=== PATIENT | female | born 1965 | race Caucasian/White ===

== ENCOUNTER 2025-06-09 07:29 | Outpatient (OUT) | payer OTHER, SELFPAY ==
--- NOTE | 2025-06-09 | XR_ITS ---
The [address] [address] Patient Name: BRITT BLACK MRN: [id number] date: 1965 Sex: F Assigned Patient Location: [facility] Current Patient Location: [facility] Accession/Order Number: [id number] Exam Date: 06/09/2025 09:30 Report Date: 06/09/2025 10:32 At the request of: ÁNGELA GUARDADO MD Procedure: XR hand VIVIENNE min 3v BILATERAL HANDS - 3 views each COMPARISON: None CLINICAL DATA: Bilateral hand pain, greater on the right. No injury. AP, lateral and oblique views were obtained. There is osteopenia. No acute fractures or dislocation are identified. There is narrowing of the interphalangeal joint spaces and hypertrophy, greatest at the distal interphalangeal joint of the index fingers. On the right, there is also cystic change at the head of the middle phalanx at the index finger. Joint space narrowing and minor hypertrophy are also noted at the first carpal metacarpal joints. Additional mild joint space narrowing is seen at the radial carpal joints. No focal soft tissue swelling is noted. XR/XR hand VIVIENNE min 3v IMPRESSION: DEGENERATIVE CHANGES, GREATEST AT THE DISTAL INDEX FINGERS AND FIRST CARPAL METACARPAL JOINTS Impression dictated by: Shereen Ruiz M.D. 06/09/2025 10:32 AM Dictation Location: [place] [address] Electronically authenticated by: [id number] Y Date: 06/09/2025 10:32
--- OUTSIDE RECORDS SUMMARY | 2025-06-09 07:31 | XMS_ITS | Patient Health Record ---
Author Organization [facility] Address [address] [place] [address] Care Team Providers Care Equalizing Saw Operator Name Role Phone Héctor Fragoso [phone] Allergies Allergen (clinical drug ingredient) Drug/Non Drug Allergy documented on EMR Reaction Allergy Type Onset Date Status penicillinUnknownDrug AllergyActive Reason For Referral No Information Medications Medication SIG (Take, Route, Frequency, Duration) Notes Start Date End Date Status hydroCHLOROthiazide ActiveTamiflu 75 mg1 cap(s) orally 2 times a day; Duration: 5 day(s)Active Problems Problem Type SNOMED Code ICD Code Onset Dates Problem Status W/U Status Risk Notes Problem Gastroesophageal ref lux disease (disorder) (784144785) GERD [Gastroesophageal reflux disease] (530.81) ActiveconfirmedProblemEssential hypertension (72062966)Essential (primary) hypertension (I10)Activeconfirmed Plan Of Treatment No Information Insurance Providers Payer Name Payer Address Payer Phone Subscriber Number Group Number Insured Name Patient Relationship to Insured Coverage Start Date Coverage End Date [employer] [address] [place] [address] [id number] Andrew Lee - patient is the spouse of the [id number] 2018 [employer] Mutual[address] [place] [phone] [id number] nieves - patient is the spouse of the insured Medical (General) History Medical History History ICD Code GERD [Gastroesophageal reflux disease] 5 30.81 Essential (primary) hypertension I10
--- OUTSIDE RECORDS SUMMARY | 2025-06-09 07:31 | XMS_ITS | Encounter Summary ---
Author Organization [facility] Address [address] [place] [address] Phone Care Team Providers Care Radiation Protection Engineer Name Role Phone Jason Orlando MD Primary Care Provider [phone] Jason Orlando MD Unavailable [phone] Encounter Details DateTypeDepartmentCare Team (Latest Contact Info)Tygvfoptsli17/04/2025Patient Risk Score AC Care Management [address] [place] [address] Social History Tobacco UseTypesPacks/DayYears UsedDateSmoking Tobacco: FormerCigarettesQuit: 07/27/2024Smokeless Tobacco: NeverAlcohol UseStandard Drinks/WeekCommentsYes6 (1 standard drink = 0.6 oz pure alcohol)PHQ-2AnswerDate RecordedPatient Health Questionnaire-2 Mvdbk770CommentsNoSex and Gender Information ValueDate RecordedSex Assigned at BirthNot on fileLegal AsgDmjmha71/26/2022 10:28 AM ESTGender IdentityNot on fileSexual OrientationNot on filedocumented as of this encounter Plan of Treatment DateTypeDepartmentCare Team (Latest Contact Info)Jdndmuqsgkf43/06/2026 9:30 AM EDTOffice Visit [facility] [address] [place] [address] [place] [address] [place], [place] [phone] documented as of this encounter Visit Diagnoses Not on filedocumented in this encounter Additional Health Concerns AssessmentNoted TimeA fall risk assessment has been completed for the patient 01/26/2025 9:30 AM EDTdocumented as of this encounter Care Teams Team MemberRelationshipSpecialtyStart [place] [address] [place] [address] PCP - General12/29/18 [place] [address] [place] [address] PCP - MMO ACO PCP07/27/23documented as of this encounter
--- OUTSIDE RECORDS SUMMARY | 2025-06-09 07:31 | XMS_ITS | Clinical Summary ---
Author Organization [facility] Address [address] [place] [address] Phone Care Team Providers Care Project Manager/Design Manager Name Role Phone Binta Bran MD Primary Care Provider [phone] Binta Bran MD Unavailable [phone] Allergies Active AllergyReactionsCriticalityNoted DateCommentsAzithromycinRashLow 2865KjxzabhodelJtsztbb52/19/1679MedtcwswxwpKrkyCzi88/05/2008 Medications MedicationSigDispense QuantityRefillsLast FilledStart DateEnd DateStatus ALPRAZolam (Xanax) 0.25 mg tablet 1 tablet (0.25 mg).02/19/2019Active cholecalciferol (Vitamin D-3) 25 MCG (1000 UT) capsule Take 1 capsule (25 mcg) by mouth once daily.Active esomeprazole (NexIUM) [address] capsule Take by mouth.12/11/2008ctive telmisartan-hydrochlorothiazid (MIcarDIS HCT) 40-12.5 mg tablet Indications:Essential hypertension, benignTake 1 tablet by mouth once daily. 90 tablet /ctive sertraline (Zoloft) 100 mg tablet Indications:AnxietyTake 1.5 tablets (150 mg) by mouth once daily. 135 tablet /ctive pitavastatin calcium (Livalo) 4 mg tablet Indications:Hyperlipidemia, unspecified hyperlipidemia typeTake 1 tablet by mouth once daily. 90 tablet /6Active Active Problems ProblemNoted DateDiagnosed DateContact lybhbcszdl34/03/2025Dermatochalasis 01/26/2025Increased frequency of cefewhdtv33/03/3503Cpzkwgtdlr33/03/2025Urinary tract tizhsscqt78/03/2025Routine general medical examination at health care kvncyexb24/03/2025 Assessment & Plan (01/26/2025 10:47 AM EDT): Orders: 1 Year Follow Up In Primary Care - Wellness Exam; Future Acute non-recurrent maxillary mgyykgxsq26/08/2024cute cystitis without scwfauoya35/20/4640Ttbphpl68/12/2024ermatochalasis of both upper eyelids 08/07/2023Essential hypertension, sobmhk3408/07/2023GERD (gastroesophageal reflux disease)08/07/20237620Xfxksziyrgkcsf65/12/2024Low back pain08/07/2023anic disorder without suhucwkpdjg10/12/2024Vitamin B12 zfkyqgnhsn89/12/2024Vitamin D yysybhlcyu66/12/2024bdominal pain, LLQ (left lower quadrant)04/26/2019History of hysterectomy for benign swsoxvp7104/26/2019History of right oophorectomy 04/26/20196325Uhltnfsjagshh21/18/2011 Resolved Problems ProblemNoted DateDiagnosed DateResolved DateCurrent every day uqfgzc1608/07/2023 01/26/2025 Encounters DateTypeDepartmentCare JkowKzbeafxqrcv99/04/2025Patient Risk Score ACO Care Management [address] [place] [address] 04/29/2025Patient Risk Score ACO Care Management [address] [place] [address] 04/26/2025 9:11 AM EDT - 04/26/2025 11:59 PM EDTHospital Encounter [facility] [address] [place] [address] Screening mammogram for breast cancer Discharge Disposition: Home04/26/20255693Ldwzoa17/04/2025Patient Risk Score ACO Care Management [address] [facility] [place] [address] 03/29/2025Telephone [facility] [address] [place] [phone] Linda Mujica MA 03/23/2025Results Follow-Up [facility] [address] [place] [phone] Binta Bran MD Vitamin D 25-Hydroxy,Total (for eval of Vitamin D levels), Vitamin B12, Thyroid Stimulating Hormone, Additional followed-up results: Travelfrom Last 3 Months Immunizations ImmunizationAdministration DatesNext DuePneumococcal polysaccharide vaccine, 23- valent, age 2 years and older (PNEUMOVAX 23)05/01/2014Zoster, live06/06/2019 Family History Medical HistoryRelationNameCommentsDiabetesFatherHypertensionFathermyocardial infractionFatherHypertensionMotherneoplasm of colonMotherRelationNameStatus CommentsFatherMother Social History Tobacco UseTypesPacks/DayYears UsedDateSmoking Tobacco: FormerCigarettesQuit: 07/27/2024Smokeless Tobacco: Never Tobacco Cessation:Counseling Given: Not Answered Alcohol UseStandard Drinks/WeekCommentsYes6 (1 standard drink = 0.6 oz pure alcohol)PHQ-2AnswerDate RecordedPatient Health Questionnaire-2 Zdohi284 CommentsNoSex and Gender InformationValueDate RecordedSex Assigned at BirthNot on fileLegal ZziRsvmyc54/26/2022 10:28 AM ESTGender IdentityNot on file Sexual OrientationNot on file Last Filed Vital Signs Vital SignReadingTime TakenCommentsBlood Frjdrhse796/8207 9:26 AM EDT Ckgab727201/26/2025 9:26 AM SFIRipiurjvzqa69.9 ??C (96.7 ??F)01/26/2025 9:26 AM EDTRespiratory Rate--Oxygen Ciosgzczle86%11/07/2021 9:53 AM EDTInhaled Oxygen Concentration--Ghqbhm60 kg (150 lb)01/26/2025 9:26 AM OIJFekfok856.8 cm (5' 2.5 )01/26/2025 9:26 AM EDTBody Mass Saebo6039/03/2025 9:26 AM EDT Plan of Treatment DateTypeDepartmentCare Team (Latest Contact Info)Avvchwfkbbu04/06/2026 9:30 AM EDTOffice Visit [facility] [address] [place] [address] [place] [address] [place] [address] Health MaintenanceDue DateLast DoneCommentsCT Ydwazvyxojpf92/01/1965FIT-DNA (Cologuard)1965FIT1965HIV Vxleoasvb39/01/4675Spekatkyzxewj98/01/1965 DTaP/Tdap/Td Vaccines (1 - Tdap)1986Pneumococcal Vaccine (2 of 2 - PCV) MMR Vaccines (1 of 1 - Standard series)07/04/2019Zoster Vaccines (2 of 3)/05/2019Influenza Vaccine (#1), 1COVID-19 Vaccine (3 - season)/, 11/08/2020 Yearly Adult Wtgkohpz23/09/2024, 10/31/2022, 1Diabetes Untlzjsma28, 01/20/2024, 05/27/2023, Additional history exists Aqiulbvbl95, 01/20/2024, 05/29/2021, Additional history exists Lipid Panel, 01/20/2024, 05/27/2023, Additional history cfurgsEfebntfeokr20, 03/15/2018, 03/15/2018, Additional history existsColorectal Cancer Hrdttyors63/24/2033RSV High Risk: (Elderly (60+) or Population) (1 - 1-dose 75+ series)10/26/2039Irritable Bowel JejwzjihIfjpftygvpkf00/20/2018, 03/15/2018, 11/20/2014Hepatitis C Screening Kdfvhaige13/11/2019HIB VaccinesAged OutNo longer eligible based on patient's age to complete this topicHPV VaccinesAged OutNo longer eligible based on patient's age to complete this topicHepatitis A VaccinesAged OutNo longer eligible based on patient's age to complete this topicHepatitis B VaccinesAged OutNo longer eligible based on patient's age to complete this topicIPV VaccinesAged OutNo longer eligible based on patient's age to complete this topicMeningococcal VaccineAged OutNo longer eligible based on patient's age to complete this topic Rotavirus VaccinesAged OutNo longer eligible based on patient's age to complete this topic Procedures Procedure NamePriorityDate/TimeAssociated DiagnosisCommentsBI MAMMO BILATERAL SCREENING BHHQOBXAYKFKWGyvsuuu74/01/2025 9:42 AM EDT Screening mammogram for breast cancer COMPREHENSIVE METABOLIC PZCZEUbsjmsh27/22/2025 9:33 AM EDT Essential hypertension, benign Hyperlipidemia, unspecified hyperlipidemia type HEMOGLOBIN T4SRymaugh20/22/2025 9:33 AM EDT Hyperglycemia LIPID MCZGMRxlkhmc93/22/2025 9:33 AM EDT Hyperlipidemia, unspecified hyperlipidemia type BLZAigdiim38/22/2025 9:33 AM EDT Essential hypertension, benign VITAMIN Z97Amppyww37/22/2025 9:33 AM EDT Vitamin B12 deficiency VITAMIN D 25-HYDROXY,WNWNNObsfbgb12/22/2025 9:33 AM EDT Vitamin D deficiency HEPATITIS C LYWZAHRQEjgvyyh97/11/2019 10:56 AM EST CHWBRHEOFYB76/20/2018 from Last 3 Months or Most Recently Relevant to Health Maintenance Results * BI mammo bilateral screening tomosynthesis (04/26/2025 9:42 AM EDT)Anatomical RegionLateralityModalityBreastBilateralMammographySpecimen (Source)Anatomical Location / LateralityCollection Method / VolumeCollection TimeReceived Time 04/27/2025 11:26 AM EDT1 11:26 AM EDT Impressions 04/27/2025 11:25 AM EDT No mammographic evidence of malignancy. ?? BI-RADS CATEGORY: BI-RADS Category: ??1 Negative. Recommendation: ??Annual Screening. Recommended Date: ??1 Year. Laterality: ??Bilateral. ? For any future breast imaging appointments, please call [phone] ([phone]). ? MACRO: None ?? Signed by: Thomas Hernnadez 04/27/2025 11:25 AM Dictation workstation: ?? [id number] Narrative 04/27/2025 11:25 AM EDT Interpreted By: Thomas Hernandez, STUDY: BI MAMMO BILATERAL SCREENING TOMOSYNTHESIS; ??04/26/2025 9:42 am ?? ACCESSION NUMBER(S): [id number] ?? ORDERING CLINICIAN: BINTA BRAN ?? INDICATION: Screening. History of a benign right breast biopsy. ?? ,Z12.31 Encounter for screening mammogram for malignant neoplasm of breast ?? COMPARISON: 01/20/2024 and 05/29/2021. ?? FINDINGS: 2D and tomosynthesis images were reviewed at 1 mm slice thickness. ?? Density: ??There are scattered areas of fibroglandular density. ?? No suspicious masses or calcifications are identified. ?? Procedure Note Thomas Hernandez DO - 04/27/2025 Interpreted By: Thomas Hernandez, STUDY: BI MAMMO BILATERAL SCREENING TOMOSYNTHESIS; 04/26/2025 9:42 am ACCESSION NUMBER(S): [id number] ORDERING CLINICIAN: BINTA BRAN INDICATION: Screening. History of a benign right breast biopsy. ,Z12.31 Encounter for screening mammogram for malignant neoplasm of breast COMPARISON: 01/20/2024 and 05/29/2021. FINDINGS: 2D and tomosynthesis images were reviewed at 1 mm slice thickness. Density: There are scattered areas of fibroglandular density. No suspicious masses or calcifications are identified. IMPRESSION: No mammographic evidence of malignancy. BI-RADS CATEGORY: BI-RADS Category: 1 Negative. Recommendation: Annual Screening. Recommended Date: 1 Year. Laterality: Bilateral. For any future breast imaging appointments, please call [phone] ([phone]). MACRO: None Signed by: Thomas Hernandez 04/27/2025 11:25 AM Dictation workstation: [id number] Authorizing ProviderResult TypeResult StatusWalter Srini Bran MDIMCyrus BI PROCEDURES Final Result * (ABNORMAL) Vitamin D 25-Hydroxy,Total (for eval of Vitamin D levels) (03/17/2025 9:33 AM EDT)ComponentValueRef RangeTest MethodAnalysis Time Performed AtPathologist SignatureVITAMIN D,25-OH,TOTAL,IA27(L)30 - 100 ng/mL [facility] HospitalComment: Vitamin D Status ? 25-OH Vitamin D: Deficiency: <20 ng/mL Insufficiency: ? 20 - 29 ng/mL Optimal: > or = 30 ng/mL For 25-OH Vitamin D testing on patients on D2-supplementation and patients for whom quantitation of D2 and D3 fractions is required, the QuestAssureD(TM) 25-OH VIT D, (D2,D3), LC/MS/MS is recommended: order code 41384 (patients >2yrs). See Note 1 Note 1 For additional information, please refer to http://education.[employer]AltheaDx/faq/PBU746 (This link is being provided for informational/ educational purposes only.) Specimen (Source)Anatomical Location / LateralityCollection Method / Volume Collection TimeReceived TimeBloodVenous blood specimen / Mekydhz4603/17/2025 9:33 AM EDT03/17/2025 9:33 AM EDT Narrative [employer] [facility] - 03/18/2025 12:14 AM EDT FASTING:YES FASTING: YES Authorizing ProviderResult TypeResult StatusBinta CHRISTENSEN BLOOD ORDERABLESFinal ResultPerforming OrganizationAddressCity/State/ZIP CodePhone Number [facility] [address], [address] [place] [address] * Thyroid Stimulating Hormone (03/17/2025 9:33 AM EDT)ComponentValueRef Range Test MethodAnalysis TimePerformed AtPathologist SignatureTSH2.110.40 - 4.50 mIU/LQuesONEPLE [facility] (Source)Anatomical Location / LateralityCollection Method / VolumeCollection TimeReceived Time BloodVenous blood specimen / Gbaqbls1503/17/2025 9:33 AM EDT03/17/2025 9:33 AM EDT Narrative [facility] - 03/18/2025 12:14 AM EDT FASTING:YES FASTING: YES Authorizing ProviderResult TypeResult StatusBinta Bran [facility]OM[facility] BLOOD ORDERABLESFinal ResultPerforming OrganizationAddressCity/State/ZIP CodePhone Number [facility] [address], [address] [place] [address] * Hemoglobin A1C (03/17/2025 9:33 AM EDT)ComponentValueRef RangeTest Method Analysis TimePerformed AtPathologist SignatureHEMOGLOBIN A1c5.5<5.7 %[facility] HospitalComment: For the purpose of screening for the presence of diabetes: <5.7% Consistent with the absence of diabetes 5.7-6.4% ?Consistent with increased risk for diabetes ?(prediabetes) > or =6.5% Consistent with diabetes This assay result is consistent with a decreased risk of diabetes. Currently, no consensus exists regarding use of hemoglobin A1c for diagnosis of diabetes in children. According to [place] Diabetes Association (ADA) guidelines, hemoglobin A1c <7.0% represents optimal control in non- diabetic patients. Different metrics may apply to specific patient populations. Standards of Medical Care in Diabetes(ADA). ?? eAG (mg/dL)111mg/dLQuest Concept Inbox [facility] HospitaleAG (mmol/L)6.2 mmol/LQuest [facility] (Source)Anatomical Location / LateralityCollection Method / VolumeCollection TimeReceived TimeBlood Venous blood specimen / Watlmow1503/17/2025 9:33 AM EDT03/17/2025 9:33 AM EDT [facility] - 03/18/2025 12:14 AM EDT FASTING:YES FASTING: YES Authorizing ProviderResult TypeResult StatusBinta CHRISTENSEN BLOOD ORDERABLESFinal ResultPerforming OrganizationAddressCity/State/ZIP CodePhone Number [address], [address] [place] [address] * Vitamin B12 (03/17/2025 9:33 AM EDT)ComponentValueRef RangeTest MethodAnalysis TimePerformed AtPathologist SignatureVITAMIN [id number] - 1,100 pg/mLQuest [facility] (Source)Anatomical Location / LateralityCollection Method / VolumeCollection TimeReceived TimeBloodVenous blood specimen / Olwgpid1603/17/2025 9:33 AM EDT03/17/2025 9:33 AM EDT Narrative [facility] - 03/18/2025 12:14 AM EDT FASTING:YES FASTING: YES Authorizing ProviderResult TypeResult StatusBinta Bran [facility] BLOOD ORDERABLESFinal ResultPerforming OrganizationAddressCity/State/ZIP CodePhone Number [address], [address] [place] [address] * (ABNORMAL) Lipid Panel (03/17/2025 9:33 AM EDT)ComponentValueRef RangeTest MethodAnalysis TimePerformed AtPathologist SignatureCHOLESTEROL, NRXAD328(H) <200 mg/dLQuest [facility] HospitalHDL GZIAZNQPXJH50> OR = 50 mg/dLQuest [facility] State HospitalTRIGLYCERIDES88<150 mg/dL [facility] HospitalHnvvripcodyk-LupxkexkrgSZJ-TECAIZZWVZK58fn/dL (calc)[facility] HospitalComment: Reference range: <100 Desirable range <100 mg/dL for primary prevention; <70 mg/dL for patients with CHD or diabetic patients with > or = 2 CHD risk factors. LDL-C is now calculated using the Priyank-Barajas calculation, which is a validated novel method providing better accuracy than the Friedewald equation in the estimation of LDL-C. Priyank SS et al. JUANPABLO. 2013;310(19): 8191-8275 (http://education.[employer]/faq/HSX878) CHOL/HDLC RATIO2.3<5.0 (calc)[facility] HospitalNON HDL WMBGPRGFKFO933<130 mg/dL (calc)[facility] Comment: For patients with diabetes plus 1 major ASCVD risk factor, treating to a non-HDL-C goal of <100 mg/dL (LDL-C of <70 mg/dL) is considered a therapeutic option. Specimen (Source)Anatomical Location / LateralityCollection Method / Volume Collection TimeReceived TimeBloodVenous blood specimen / Wyrrvku0103/17/2025 9:33 AM EDT03/17/2025 9:33 AM EDT Narrative [facility] - 03/18/2025 12:14 AM EDT FASTING:YES FASTING: YES Authorizing ProviderResult TypeResult StatusBinta Bran [facility] BLOOD ORDERABLESFinal ResultPerforming OrganizationAddressCity/State/ZIP CodePhone Number [facility] [address], [address] [place] [phone] * (ABNORMAL) Comprehensive Metabolic Panel (03/17/2025 9:33 AM EDT)Component ValueRef RangeTest MethodAnalysis TimePerformed AtPathologist SignatureGLUCOSE 107(H)65 - 99 mg/dLQuest [facility] HospitalComment: ? Fasting reference interval For someone without known diabetes, a glucose value between 100 and 125 mg/dL is consistent with prediabetes and should be confirmed with a follow-up test. UREA NITROGEN (BUN)157 - 25 mg/dLQuest [facility] CREATININE0.590.50 - 1.05 mg/dLQuest Diagnostics [facility] HospitalEGFR 103> OR = 60 mL/min/1.91h8Arguh [facility] HospitalSODIUM140 135 - 146 mmol/LQuest [facility] HospitalPOTASSIUM4.43.5 - 5.3 mmol/LQuest [facility] HospitalCHLORIDE10198 - 110 mmol/L [facility] HospitalCARBON EYNQSEO9195 - 32 mmol/LQuest Diagnostics [facility] HospitalELECTROLYTE ENDCXGC51 - 17 mmol/L (calc) [facility] HospitalCALCIUM10.08.6 - 10.4 mg/dLQuest Diagnostics [facility] HospitalPROTEIN, TOTAL7.16.1 - 8.1 g/dLQuest [facility] HospitalALBUMIN4.53.6 - 5.1 g/dLQuest [facility]ostics [facility] HospitalBILIRUBIN, TOTAL0.40.2 - 1.2 mg/dLQuest [facility] [place] HospitalALKALINE EEFOHGEGRZT9405 - 153 U/LQuest [facility]ostics [place] HospitalAST1810 - 35 U/LQuest [facility] [place] HospitalALT196 - 29 U/LQuest [facility]ostics [facility] HospitalSpecimen (Source)Anatomical Location / Laterality Collection Method / VolumeCollection TimeReceived TimeBloodVenous blood specimen / Iwsisik4603/17/2025 9:33 AM EDT03/17/2025 9:33 AM EDT Narrative [facility] - 03/18/2025 12:14 AM EDT FASTING:YES FASTING: YES Authorizing ProviderResult TypeResult StatusBinta CHRISTENSEN BLOOD ORDERABLESFinal ResultPerforming OrganizationAddressCity/State/ZIP CodePhone Number [facility] [address], [address] [place] [phone] * Hepatitis C Antibody (06/06/2019 10:56 AM EST)ComponentValueRef RangeTest MethodAnalysis TimePerformed AtPathologist SignatureHepatitis C AbNON-REACTIVE NONREACTIVEWILKES-BARRE GENERAL HOSPITAL LABComment: Patients receiving more than 5 mg/day of biotin may have interference in test results. ??A sample should be taken no sooner than eight hours after ??previous dose. Contact the testing laboratory for additional information. Specimen (Source)Anatomical Location / LateralityCollection Method / Volume Collection TimeReceived Time06/06/2019 10:56 AM EST06/06/2019 5:15 PM EST Narrative Authorizing ProviderResult TypeResult StatusBinta CHRISTENSEN BLOOD ORDERABLESFinal ResultPerforming OrganizationAddressCity/State/ZIP CodePhone Number [facility] * COLONOSCOPY (03/15/2018)Anatomical RegionLateralityModalityEndoscopy Narrative 03/15/2018 Ordered by an unspecified provider. Authorizing ProviderResult TypeResult StatusOnbase ConversionENDOSCOPY PROCEDURE ORDERABLESFinal Result from Last 3 Months or Most Recently Relevant to Health Maintenance Insurance MemberSubscriberPlan / Payer (Effective 2022-Present)Name:JesusWaldemarharshad Relation to Subscriber:SelfName:Rachael Lee Payer ID:Not on file Type:Not on file Address: [address] [place] [phone] Advance Directives For more information, please contact: [phone] (Available ) NameRelationshipHealthcare Agent RelationshipCommunicationBinghamton State Hospital Health Care Agent* Care Teams Team MemberRelationshipSpecialtyStart [place] [address] [place] [address] PCP - General12/29/18 [place] [address] [place] [address] PCP - MMO ACO PCP07/27/23
--- OUTSIDE RECORDS SUMMARY | 2025-06-09 07:31 | XMS_ITS | Clinical Summary ---
Author Organization [facility] Address [address] [place] [id number] Care Team Providers Care Security System Installer Name Role Phone Jason Orlando MD Primary Care Provider [phone] Allergies Active AllergyReactionsCriticalityNoted AecdQtgmiqndIhnhpprrgtw39/05/2008 Medications MedicationSigDispense QuantityRefillsLast FilledStart DateEnd DateStatus esomeprazole mag trihydrate(NEXIUM 40 MG CAP) Take one(1) tablet daily.ctive MICARDIS HCT 40-12.5 mg ORAL per tablet 06/18/2011ctive leuprolide (LUPRON DEPOT) 3.75 mg INTRAMUSC. injection Indications:EndometriosisInject 3.75 mg intramuscularly once every month. 1 Each ctive LIVALO 2 mg tab 2 mg.04/07/2019Active sertraline (ZOLOFT) 100 mg tablet 100 mg. 03/27/2019Active ALPRAZolam (XANAX) 0.25 mg tablet 0.25 mg.02/19/2019Active VITAMIN B COMPLEX ORAL Take by mouth. Active multivitamin (VITAMIN DAILY ORAL) Take by mouth.Active erythromycin (ROMYCIN) 5 mg/gram (0.5 %) ophthalmic ointment Use 1 application in both eyes four times daily. Apply 1/2 inch ribbon per application 3.[address] (PROTONIX) 40 mg tablet Indications:Hiatal hernia,Esophagitis, Newton grade BTake 1 tablet by mouth once daily. 90 tablet 02/16/2023ctive sucralfate (CARAFATE) 1 gram tablet Take 1 tablet by mouth twice daily. 60 tablet 307/24/2023Active Active Problems ProblemNoted DateDiagnosed DateHistory of /01/2019History of hysterectomy for benign ncjpakk6304/26/2019History of right mgfgatjyjpgh01/01/2019 Abdominal pain, bilateral lower /01/6248Rnwwyyxpqmkzy32/18/2011 Encounters DateTypeDepartmentCare IohwOcfotupfenb86/17/2025 9:35 AM EDT - 04/12/2025 9:[facility] [address] [place] [address] José Santamaria DO dizziness Discharge Disposition: Admitted in Error04/12/2025Travelfrom Last 3 Months Family History Medical HistoryRelationCommentsHeartFatherBreast CancerMaternal Aunt 1Breast CancerMaternal Aunt 2DiabetesOther 1ArthritisOther 2ArthritisOther 3ULCERSOther 4RelationStatusCommentsFatherMaternal Aunt 1Maternal Aunt 2Other 1Other 2Other 3 Other 4 Social History Tobacco UseTypesPacks/DayYears UsedDateSmoking Tobacco: Some DaysCigarettes Smokeless Tobacco: Never Tobacco Cessation:Counseling Given: Yes Comments:social Alcohol UseStandard Drinks/WeekCommentsYes0 (1 standard drink = 0.6 oz pure alcohol)socialArea Deprivation IndexAnswerDate RecordedNational Score (1-100), lower number is lower riskNot on file07/01/2020State Score (1-10), lower number is lower riskNot on file07/01/2020Data from: https://www.neighborhoodatlas.medicine.[facility].edu/. Last address used for calculationNot on file07/01/2020CommentsNoSex and Gender Information ValueDate RecordedSex Assigned at AjnnfZhtevf72/27/2022 8:29 AM EDTLegal Sex Zfrlau2606/27/2012 7:56 AM ESTGender DkmyxtluJyscox52/27/2022 8:29 AM EDTSexual RowafakgeeoCnmzfdcd03/27/2022 8:29 AM EDT Last Filed Vital Signs Vital SignReadingTime TakenCommentsBlood Dxtkfwwx746/7507 8:40 AM EDT Uouvn227802/16/2023 8:40 AM CBJYeorrhwruxu29 ??C (96.8 ??F)02/16/2023 8:02 AM EDT Respiratory Ghog569902/16/2023 8:40 AM EDTOxygen Wfqusemaul54%02/16/2023 8:40 AM EDTInhaled Oxygen Concentration--Bllesg64.4 kg (164 lb)04/19/2019 10:52 AM EDT Ahrvbf853.5 cm (5' 2 )04/19/2019 10:52 AM EDTBody Mass Mqpzb4385/24/2019 10:52 AM EDT Plan of Treatment Health MaintenanceDue DateLast DoneCommentsAnxiety Oyotjjcmq66/01/1983Depression Lcemhxutm21/01/1983HIV Csgtjasix41/01/1983CT Jeutuvkqsqde44/01/2010Cologuard (FIT-DNA)2009Fecal Occult Blood10/25/20098270Yhyrkluoudnpz60/01/2010Cervical Cancer Wyysutdmr43Pneumococcal Vaccine: 50+ (2 of 2 - PCV) Shingrix Vaccine (2 of 3)Mammogram Svohdatgt65, 01/20/2024, 06/10/2016, Additional history exists Covid-19 Vaccine (3 - season)/, 11/08/2020Influenza Vaccine (#1)/, 06/14/2021, 06/09/20114016Tsczvgvicpn89/24/2028 02/16/2023, 02/16/2023, 03/15/2018, Additional history existsColorectal Cancer Lmbknqzrb22/24/2028Diabetes Jxvzzmchx81, 03/17/2025, 01/20/2024, Additional history existsDTaP,Tdap,Td Vaccine (2 - Td or Tdap) Lipid Njnoojbvx65, 01/20/2024, 05/27/2023, Additional history existsRSV Vaccine (1 - 1-dose 75+ series)10/26/2039Hepatitis C OdwwuhuvmNkloynfps18/11/2019 Procedures Procedure NamePriorityDate/TimeAssociated DiagnosisCommentsCOLONOSCOPY SCREENING Xgqepqx9702/16/2023 7:12 AM EDT History of colonic polyps MAMMOGRAM SCREENING BIL06/10/2016 3:41 PM EST HPV DNA ASSAY12/18/2005 9:30 AM EDT from Last 3 Months or Most Recently Relevant to Health Maintenance Results * COLONOSCOPY SCREENING (02/16/2023 7:12 AM EDT)Anatomical RegionLaterality ModalityOtherSpecimen (Source)Anatomical Location / LateralityCollection Method / VolumeCollection TimeReceived Time02/16/2023 7:12 AM EDT Narrative 02/16/2023 8:04 AM EDT [facility] Gastrointestinal Endoscopy Patient Name: Rachael Lee Procedure Date: 02/16/2023 7:12 AM Date of : 1965 Admit Type: Outpatient Age: 57 Room: PROCEDURE A Gender: Female Note Status: Finalized Attending MD: Sai Price MD Procedure: ? Colonoscopy Indications: ? Screening for colorectal malignant neoplasm Providers: ? Sai Price MD Patient Profile: ? This is a 57 year old female. Refer to note in ? patient chart for documentation of history and ? physical. Last Colonoscopy: several years ago. Referring Physician: ?? Sai Price MD (Referring MD) Medicines: ? Monitored Anesthesia Care Complications: ? No immediate complications. Requesting Provider: ?? Procedure: ? Pre-Anesthesia Assessment: ? - Prior to the procedure, a History and Physical ? was performed, and patient medications and ? allergies were reviewed. The patient is competent. ? The risks and benefits of the procedure and the ? sedation options and risks were discussed with the ? patient. All questions were answered and informed ? consent was obtained. Patient identification and ? proposed procedure were verified by the physician, ? the nurse and the hammer shop supervisor in the procedure room ? at 07:27 AM. Mental Status Examination: alert and ? oriented. Airway Examination: normal oropharyngeal ? airway and neck mobility. Respiratory Examination: ? clear to auscultation. CV Examination: normal. ? Prophylactic Antibiotics: The patient does not ? require prophylactic antibiotics. Prior ? Anticoagulants: The patient has taken no ? anticoagulant or antiplatelet agents. ASA Grade ? Assessment: II - A patient with mild systemic ? disease. After reviewing the risks and benefits, ? the patient was deemed in satisfactory condition to ? undergo the procedure. The anesthesia plan was to ? use monitored anesthesia care (MAC). Immediately ? prior to administration of medications, the patient ? was re-assessed for adequacy to receive sedatives. ? The heart rate, respiratory rate, oxygen ? saturations, blood pressure, adequacy of pulmonary ? ventilation, and response to care were monitored ? throughout the procedure. The physical status of ? the patient was re-assessed after the procedure. ? After I obtained informed consent, the scope was ? passed under direct vision. Throughout the ? procedure, the patient's blood pressure, pulse, and ? oxygen saturations were monitored continuously. The ? Colonoscope was introduced through the anus and ? advanced to the terminal ileum, with identification ? of the appendiceal orifice and IC valve. The ? colonoscopy was performed without difficulty. The ? patient tolerated the procedure well. The quality ? of the bowel preparation was good. The terminal ? ileum, ileocecal valve, appendiceal orifice, and ? rectum were photographed. Scope Withdrawal Time: 0 hours 9 minutes 39 seconds Moderate Sedation: ? MAC anesthesia was administered by the anesthesia team. Total Procedure Duration: 0 hours 14 minutes 10 seconds Findings: ? The perianal and digital rectal examinations were normal. Pertinent ? negatives include normal sphincter tone. ? Non-bleeding internal hemorrhoids were found during retroflexion. The ? hemorrhoids were moderate, medium-sized and Grade I (internal ? hemorrhoids that do not prolapse). ? A 7 mm polyp was found in the rectum. The polyp was sessile. The ? polyp was removed with a cold snare. Resection and retrieval were ? complete. To prevent bleeding after the polypectomy, one hemostatic ? clip was successfully placed (MR conditional). Clip manager housekeeping: ? [employer]. There was no bleeding at the end of the procedure. ? Two sessile polyps were found in the rectum. The polyps were 2 to 3 ? mm in size. These polyps were removed with a cold biopsy forceps. ? Resection and retrieval were complete. ? A few small-mouthed diverticula were found in the sigmoid colon. ? There was no evidence of diverticular bleeding. ? The exam was otherwise normal throughout the examined colon. ? There is no endoscopic evidence of bleeding, erythema, inflammation, ? mass, stenosis, stricture or ulcerations in the entire colon. ? The terminal ileum appeared normal. Impression: ?- Non-bleeding internal hemorrhoids. ? - One 7 mm polyp in the rectum, removed with a cold ? snare. Resected and retrieved. Clip (MR ? conditional) was placed. Clip manager housekeeping: [employer]. ? - Two 2 to 3 mm polyps in the rectum, removed with ? a cold biopsy forceps. Resected and retrieved. ? - Mild diverticulosis in the sigmoid colon. There ? was no evidence of diverticular bleeding. ? - The examined portion of the ileum was normal. Recommendation: ?- Patient has a contact number available for ? emergencies. The signs and symptoms of potential ? delayed complications were discussed with the ? patient. Return to normal activities tomorrow. ? Written discharge instructions were provided to the ? patient. ? - Resume previous diet. ? - Continue present medications. ? - Await pathology results. ? - Repeat colonoscopy in 5 years for surveillance. ? - Return to primary care physician PRN. ? - Use Citrucel one tablespoon PO daily indefinitely. ? - Discharge patient to home (ambulatory). ? - Resume anticoagulant at prior dose. Procedure Code(s): ? --- Professional --- ? 56898, Colonoscopy, flexible; with removal of ? tumor(s), polyp(s), or other lesion(s) by snare ? technique ? 34348, 59, Colonoscopy, flexible; with biopsy, ? single or multiple Diagnosis Code(s): ? --- Professional --- ? D12.8, Benign neoplasm of rectum ? Z12.11, Encounter for screening for malignant ? neoplasm of colon ? K64.0, First degree hemorrhoids ? K57.30, Diverticulosis of large intestine without ? perforation or abscess without bleeding CPT copyright 2020 [employer]. All rights reserved. The codes documented in this report are preliminary and upon office 365 consultant review may be revised to meet current compliance requirements. Attending Participation: ? I personally performed the entire procedure. Scope In: 7:42:53 AM Scope Out: 7:57:03 AM MD Sai Nugent MD 02/16/2023 8:01:19 AM This report has been signed electronically by Sai Price MD Number of Addenda: 0 Note Initiated On: 02/16/2023 7:12 AM Estimated Blood Loss: ? Estimated blood loss: none. Authorizing ProviderResult TypeResult StatusSai Price MDDIGESTIVE DISEASE Final Result * MAMMOGRAM SCREENING VIVIENNE (06/10/2016 3:41 PM EST)Anatomical RegionLaterality ModalityOtherSpecimen (Source)Anatomical Location / LateralityCollection Method / VolumeCollection TimeReceived Time06/10/2016 3:41 PM EST Impressions 06/10/2016 4:20 PM EST IMPRESSION: INCOMPLETE: NEEDS ADDITIONAL IMAGING EVALUATION The possible asymmetry in the left breast is indeterminate. ??Additional views are recommended. Ishmael diallo/ramarad:06/10/2016 16:20:13 Cable Hooker: Shereen SALGUERO)([place]), [facility] letter sent: Additional Imaging Needed Mammogram BI-RADS: 0 Indeterminate ?? [id number] If this report indicates you need additional imaging, and it has NOT yet been performed, please call , to schedule. We sincerely thank you for choosing the [facility] for your breast imaging needs. Senior Project Architect: Soren Transcribe Date/Time: Jun 10 2016 ??3:30P Dictated by: ISHMAEL BALDWIN MD This examination was interpreted and the report reviewed and electronically signed by: ISHMAEL BALDWIN MD on Jun 10 2016 ??4:20PM ??EST Narrative 06/10/2016 4:20 PM EST * * *Final Report* * * DATE OF EXAM: Jun 10 2016 ??3:41PM ?? CHW ?? [id number] ??- ??TITO DIG SCREEN CAD VIVIENNE ??/ PROCEDURE REASON: screening ? * * * * Physician Interpretation * * * * RESULT: #[id number] - TITO DIG SCREEN CAD VIVIENNE BILATERAL DIGITAL SCREENING MAMMOGRAM WITH CAD: 06/10/2016 HISTORY: Screening /Patient reports no breast symptoms /Patient reports no breast symptoms. RESULT: TECHNIQUE: ??The study was acquired using full field digital technology and interpreted from soft copy. Current study was also evaluated with a Computer Aided Detection (CAD). Comparison is made to exams dated: ??04/21/2012 mammogram, 06/21/2013 mammogram - [facility], and 12/04/2009 mammogram. The tissue of both breasts is heterogeneously dense. This may lower the sensitivity of mammography. There is a possible asymmetry in the left breast middle depth medial region seen on the craniocaudal view only. No other significant masses, calcifications, or other findings are seen in either breast. Authorizing ProviderResult TypeResult StatusCcf ProviderMAMMOGRAPHYFinal Result * HPV DNA ASSAY (12/18/2005 9:30 AM EDT)ComponentValueRef RangeTest Method Analysis TimePerformed AtPathologist SignatureHPV DNA AssayNegative for HPV High or Intermediate risk types 16, 18, 31, 33, 35, 39, 45, 51, 52, 56, 58, 59, 68. Low risk HPV types are not detected by this assay. Performed at [facility] [place], [place] [address]GILZBZPP LABORATORYSpecimen (Source)Anatomical Location / Laterality Collection Method / VolumeCollection TimeReceived Time12/18/2005 9:30 AM EDT Narrative Authorizing ProviderResult TypeResult StatusStacie Placido MDMICROBIOLOGYFinal ResultPerforming OrganizationAddressCity/State/ZIP CodePhone Number [facility] [address] [place], [place] [phone] from Last 3 Months or Most Recently Relevant to Health Maintenance Insurance Care Teams Team MemberRelationshipSpecialty[place] [address] [place] [address] PCP - GeneralFamily Medicine01/15/16
== END 2025-06-09 07:30 | disposition home or self-care (01) ==
LOC: RAD 07:29
PROVIDERS: Visit Provider Orthopaedic Surgery
DX: M79.641 Pain in right hand (principal); M79.642 Pain in left hand; M19.042 Primary osteoarthritis, left hand; M19.041 Primary osteoarthritis, right hand
CPT/HCPCS: 73130